=== PATIENT | male | born 1975 | race Two or more races ===

== ENCOUNTER 2019-03-06 12:13 | Emergency (ER) | payer OTHER ==
[~2019-03-06] VITALS: Ht 180.3 cm; Wt 89.0 kg
[2019-03-06 12:21] VITALS: BP 140/90
[2019-03-06] MEDS ORDERED: METHOCARBAMOL 750 MG TABLET PO ONE (13:00)
[2019-03-06] MEDS ORDERED: IBUPROFEN 800 MG TABLET PO ONE (13:00)
[2019-03-06] MEDS ORDERED: METHOCARBAMOL 750 MG TABLET ONE (13:02)
[2019-03-06] MEDS ORDERED: IBUPROFEN 800 MG TABLET ONE (13:03)
--- NOTE | 2019-03-06 13:04 | NUR ---
THIS RN IN TO ADMINISTER MED ORDERS. PT OUT OF ROOM AT THIS TIME.
--- NOTE | 2019-03-06 13:07 | NUR ---
PT BACK FROM IMAGING.
--- NOTE | 2019-03-06 13:55 | NUR ---
Patient/Caregiver given discharge instructions and they have confirmed that they understand the instructions. Patient ambulatory with steady gait using crutches. pt left all pesonal belongings.
== END 2019-03-06 13:57 | disposition home or self-care (01) ==
LOC: ED 13:30
DX: S32.019A Unspecified fracture of first lumbar vertebra, initial encounter for closed fracture (principal); S93.492A Sprain of other ligament of left ankle, initial encounter; W11.XXXA Fall on and from ladder, initial encounter; Y93.89 Activity, other specified; Y92.69 Other specified industrial and construction area as the place of occurrence of the external cause; Y99.0 Civilian activity done for income or pay; F17.200 Nicotine dependence, unspecified, uncomplicated
CPT/HCPCS: 72110; 99283